=== PATIENT | female | born 1960 | race Caucasian/White ===

== ENCOUNTER → 2024-04-29 | Outpatient (CLI) | payer OTHER | END | disposition home or self-care (01) | LOC: SHCH 11:16 → EDUNIT# 11:30 | PROVIDERS: ATTEND Internal Medicine | DX: R94.31 Abnormal electrocardiogram [ECG] [EKG] (principal) | CPT/HCPCS: 93306 ==

== ENCOUNTER → 2024-05-17 | Outpatient (CLI) | payer OTHER ==
[2024-05-17] MEDS: REGADENOSON 0.4 MG/5 ML PF SYG IVP ONE (14:13)
== END | disposition home or self-care (01) ==
LOC: SHCH 08:14
PROVIDERS: ATTEND Internal Medicine
DX: R94.31 Abnormal electrocardiogram [ECG] [EKG] (principal); R51.9 Headache, unspecified
CPT/HCPCS: 78452; 93017; J2785; A9500 ×2